=== PATIENT | female | born 2005 | race Two or more races ===

== ENCOUNTER 2025-05-17 03:05 | Emergency (ER) | payer OTHER ==
[~2025-05-17] VITALS: Ht 160 cm; Wt 50.3 kg
[2025-05-17] MEDS ORDERED: KETOROLAC TROMETHAMINE 30 MG VIAL IM STA (03:24)
[2025-05-17] MEDS ORDERED: KETOROLAC TROMETHAMINE 30 MG VIAL ONE (03:25)
[2025-05-17 04:16] LABS: BASO % 0.7 % (0.1-1.2); EOS # 0.16 (0.04-0.54); EOS % 1.9 % (0.7-7.0); LYMPH # 2.53 (1.18-3.74); LYMPH % 30.1 % (19.3-53.1); MEAN PLATELET VOLUME 10.50 fl (9.4-12.4); MONO # 0.75 (0.24-0.82); MONO % 8.9 % (4.7-12.5); NEUT # 4.88 (1.56-6.13); NEUT % 58.0 % (34.0-71.1); RED CELL DISTRIBUTION WIDTH 13.6 % (11.6-14.4)
[2025-05-17 04:34] LABS: ALT/SGPT 19.0 U/L (12-78); AST/SGOT 14.0 U/L (15-37); BILIRUBIN TOTAL 0.2 mg/dL (0.3-1.2); BUN CREA RATIO 13.0 (7.0-25.0); CREATININE SERUM 1.07 mg/dL (0.55-1.02); GFR 65.38; GLOBULINA 3.5 G/DL (2.4-3.5); GLUCOSE FASTING 116.0 mg/dL (65-100); OSMOLALITY SERUM 281.0 MOSM/KG (275-295)
[2025-05-17 05:28] LABS: URINE APPEARANCE Clear; URINE BILIRRUBIN Negative (NEGATIVE); URINE BLOOD Negative; URINE COLOR Yellow; URINE GLUCOSE Negative (NEGATIVE); URINE KETONE Negative (NEGATIVE); URINE LEUKOCYTE Negative; URINE NITRATE Negative; URINE PROTEIN Negative (NEGATIVE); URINE UROBILINOGEN 0.2 E.U./dl
[2025-05-17 05:32] LABS: URINE BACTERIA 34.8 uL (0.0-1933); URINE EPITHELIAL CELLS 2.1 uL (0.0-38.8)
[2025-05-17 05:56] LABS: TYPE CELLS SQUAMOUS; URINE CAST 0.00 uL (0.0-1.40); URINE RBC 0.2 uL (0.0-20.8); URINE WBC 0.9 uL (0.0-23.2)
[2025-05-17] MEDS ORDERED: IBU400 MG PO (10:12)
[2025-05-17] MEDS ORDERED: PEPCID AC20 MG PO (10:12)
== END 2025-05-17 11:17 | disposition home or self-care (01) ==
LOC: ER 03:05
PROVIDERS: Physician Assistant Medical
DX: N83.292 Other ovarian cyst, left side (principal); N83.291 Other ovarian cyst, right side; Z97.5 Presence of (intrauterine) contraceptive device